=== PATIENT | female | born 1980 | race Caucasian/White ===

== ENCOUNTER 2017-05-22 01:35 | Emergency (ER) | payer OTHER ==
[~2017-05-22] VITALS: Ht 167.6 cm; Wt 77.1 kg
[2017-05-22] MEDS ORDERED: BUSPIRONE HCL10 MG PO (01:54)
[2017-05-22] MEDS ORDERED: LITHIUM CARBON150 MG PO (01:54)
[2017-05-22] MEDS ORDERED: QUETIAPINE FUM200 MG PO (01:56)
[2017-05-22] MEDS ORDERED: TRAZODONE HCL100 MG PO (01:57)
[2017-05-22] MEDS ORDERED: CLONAZEPAM2 MG PO (01:57)
== END 2017-05-22 03:08 | disposition home or self-care (01) ==
LOC: ER 01:35
DX: F10.129 Alcohol abuse with intoxication, unspecified (principal); F43.20 Adjustment disorder, unspecified; F31.9 Bipolar disorder, unspecified; M54.9 Dorsalgia, unspecified; G89.29 Other chronic pain